=== PATIENT | male | born 1980 | race Asian ===

== ENCOUNTER 2019-04-27 11:04 | Emergency (ER) | payer OTHER ==
[~2019-04-27] VITALS: Ht 175.3 cm; Wt 104.3 kg
[~2019-04-27 11:04] MED LIST: AMLO2.5T PO; PROPRANOLOL80 MG OR
[2019-04-27 12:13] LABS: PLATELET COUNT 285 K/uL (142-355)
[2019-04-27 12:36] LABS: POTASSIUM 4.2 mmol/L (3.6-5.2); SODIUM 138 mmol/L (136-145)
[2019-04-27 19:26] VITALS: BP 147/91; TEMP 97.7
== END 2019-04-27 19:26 | disposition other institution (70) ==
LOC: ED 11:04
PROVIDERS: Emergency Medicine
DX: F43.10 Post-traumatic stress disorder, unspecified (principal)
CPT/HCPCS: 36415; 80053; 80307; 80320; 80329; 81000; 82550; 84484; 85027; 93005; 96374; 99285

== ENCOUNTER 2020-10-16 06:04 | Emergency (ER) | payer OTHER ==
[~2020-10-16] VITALS: Ht 175.3 cm; Wt 113.4 kg
[2020-10-16 07:36] LABS: PLATELET COUNT 255 K/uL (142-355)
[2020-10-16 07:52] LABS: POTASSIUM 3.6 mmol/L (3.6-5.2)
[2020-10-16 20:24] VITALS: BP 161/102; TEMP 98.3
== END 2020-10-16 20:24 | disposition still patient (30) ==
LOC: ED 06:04
PROVIDERS: Emergency Medicine Emergency Medical Services
DX: F32.89 Other specified depressive episodes (principal); F41.8 Other specified anxiety disorders; F43.10 Post-traumatic stress disorder, unspecified; Z03.818 Encounter for observation for suspected exposure to other biological agents ruled out
CPT/HCPCS: 80053; 80307; 80320; 80329; 85027; 87635; 93005; 96372; 99285; J1885; U0003